=== PATIENT | female | born 1970 | race Caucasian/White ===

== ENCOUNTER 2016-07-27 10:18 | Outpatient (CLI) | payer BC | END 2016-07-27 10:19 | LOC: NAVSJIPCSP 10:18 | PROVIDERS: ATTEND Internal Medicine | DX: E78.5 Hyperlipidemia, unspecified (principal) | CPT/HCPCS: 36415; 80061 ==

== ENCOUNTER 2016-11-25 08:30 | Outpatient (CLI) | payer BC ==
[2016-11-25 12:58] LABS: Anion Gap 16 mmol/L (10-20); BUN (Urea Nitrogen) 12 mg/dL (7.0-18.7); Calc. Creatinine Clearance 0 mL/min (70-130); Calcium 9.3 mg/dL (7.8-10.44); Carbon Dioxide 26 mmol/L (22-29); Cardiac Risk 4.4 (Less than 4.5); Chloride 102 mmol/L (98-107); Cholesterol 192 mg/dL (< 200 Desired); Estimated GFR-MDRD 82; Glucose 88 mg/dL (70-105); HDL Cholesterol 44 mg/dL (>60 Neg Risk); LDL Cholesterol, Calculated 111 mg/dL; Potassium 3.8 mmol/L (3.5-5.1); Sodium 140 mmol/L (136-145); Triglycerides 185 mg/dL (Less than 150)
== END 2016-11-25 08:31 ==
LOC: NAVSJIPCSP 08:30
PROVIDERS: ATTEND Internal Medicine
DX: E78.5 Hyperlipidemia, unspecified (principal); I10 Essential (primary) hypertension; Z79.52 Long term (current) use of systemic steroids
CPT/HCPCS: 36415; 80048; 80061